=== PATIENT | male | born 1985 | race Caucasian/White ===

== ENCOUNTER 2020-08-12 12:25 | Outpatient (REF) | payer MEDICAID, SELFPAY | END 2020-08-12 12:26 | disposition home or self-care (01) | LOC: HO.LAB 12:25 | PROVIDERS: PCP Family Medicine; Visit Provider Internal Medicine | DX: Z20.822 Contact with and (suspected) exposure to COVID-19 (principal) | CPT/HCPCS: 36415; C9803; U0003 ==

== ENCOUNTER 2022-06-25 06:29 | Day surgery (SDC) | payer OTHER, SELFPAY ==
[2022-06-17 12:40] VITALS: BMI 33.2
--- NOTE | 2022-06-24 09:38 | HO.ANESPROP2 ---
Documented by User: Dulce Silveira NP 06/24/22 09:38 HPI - Anesthesia Eval Consult details Narrative: 37yo M for Right Excision Axillary Cyst [facility] Active Problems Active Problems: All Active Problems (Updated 06/17/22 @ 12:36 by Mallory Ladd RN) Sebaceous cyst of right axilla (Acute) Anxiety (Acute) Past Medical History Medical History (Updated 06/17/22 @ 12:36 by Mallory Ladd RN) Anxiety GERD (gastroesophageal reflux disease) History of panic attacks Mood swings Surgical History Surgical History H/O toe surgery Social History Social History Household Members: Family Housing: House Alcohol intake: current Alcohol intake frequency: a few times a month Patient Tobacco Use Status: Current everyday Tobacco user Tobacco use type: Cigarette Cigarette Packs Per Day: 6 Cigarettes Per Day: 4 Use of substances other than those prescribed or required for medical reasons: No Are you DNR?: No Advance Directives: No Advance Directives Information Provided: Yes Meds Allergies Allergy/AdvReac Type Severity Reaction Status Date / Time Penicillins AdvReac Severe Gastrointestinal Verified 06/17/22 12:35 Upset amoxicillin AdvReac Intermediate Gastrointestinal Verified 06/17/22 12:35 Upset Home Medications Medication Instructions Recorded Confirmed Last Taken Type bupropion HCl 300 mg 24 hr tablet, 300 mg PO DAILY 05/26/22 06/25/22 06/25/22 History extended release clonidine HCl 0.1 mg tablet 0.1 mg PO BEDTIME PRN Anxiety 05/26/22 06/17/22 Unknown History Exam Exam Date and Time: June 24, 2022 0938 Height,Weight and Vital Signs: Height 6 ft 3 in Weight 120.656 kg Assessment and Plan Assessment Anesthesia Assessment: Chart Reviewed Documented by User: Janis Ocasio MD 06/25/22 07:34 [facility] Past Medical History Medical History (Updated 06/17/22 @ 12:36 by Mallory Ladd RN) Anxiety GERD (gastroesophageal reflux disease) History of panic attacks Mood swings Functional capacity: independent ambulation Family History Family history of problems with anesthesia: No Surgical History Surgical History H/O toe surgery History of Problems with Anesthesia: No Social History Social History Household Members: Family Housing: House Alcohol intake: current Alcohol intake frequency: a few times a month Patient Tobacco Use Status: Current everyday Tobacco user Tobacco use type: Cigarette Cigarette Packs Per Day: 6 Cigarettes Per Day: 4 Use of substances other than those prescribed or required for medical reasons: No Are you DNR?: No Advance Directives: No Advance Directives Information Provided: Yes Meds Allergies Allergy/AdvReac Type Severity Reaction Status Date / Time Penicillins AdvReac Severe Gastrointestinal Verified 06/17/22 12:35 Upset amoxicillin AdvReac Intermediate Gastrointestinal Verified 06/17/22 12:35 Upset Home Medications Medication Instructions Recorded Confirmed Last Taken Type bupropion HCl 300 mg 24 hr tablet, 300 mg PO DAILY 05/26/22 06/25/22 06/25/22 History extended release clonidine HCl 0.1 mg tablet 0.1 mg PO BEDTIME PRN Anxiety 05/26/22 06/17/22 Unknown History Exam Airway Mallampati Class: II TM Dist: >3cm Neck ROM: Full Heart: rr Lungs: cta Assessment and Plan Final Anesthetic Review Family History of Problems with Anesthesia: No History of Problems with Anesthesia: No NPO: Yes ASA Class: II Final Preanesthetic Review: No Changes in Pt Med Stat Patient Risk: Low Anesthetic Plan Anesthetic Plan: MAC: Disposition: Standard PACU
[2022-06-25 07:02] VITALS: BMI 27.2
[2022-06-25 07:09] VITALS: BP 120/84; PULSE 87; RESP 16; TEMP 36.3; O2SAT 98
--- NOTE | 2022-06-25 07:15 | MHC.SHP ---
Pre-Procedural Eval Section A Date of Service: 06/25/22 The patient is an INPATIENT: No The History & Physical has been completed within 30 days and I have reviewed it.: Yes Section B Chief Complaint: Sebaceous cyst Allergies: Allergies Allergy/AdvReac Type Severity Reaction Status Date / Time Penicillins AdvReac Severe Gastrointestinal Verified 06/17/22 12:35 Upset amoxicillin AdvReac Intermediate Gastrointestinal Verified 06/17/22 12:35 Upset Plan I have reviewed the history and physical and performed a pertinent physical examination on my patient. No changes have occurred unless specified.
--- NOTE | 2022-06-25 07:16 | W.PM.OPN ---
Operative Note Operative Note Date of Service: 06/25/22 Narrative: Preop diagnosis: [RIGHT AXILLARY SEBACEOUS CYST, intractable anxiety] Postop diagnosis: [Same] Procedure: [Excision of a 3.5 x 3.6cm sebaceous cyst with intermediate closure of a 4 cm incision] Surgeon: Marcus Sarah MD Assist: [] Anesthesia: [Mac, local was lidocaine, 1% plain with a P of a cane, 0.5 with epi] Estimated blood loss: [3cc] Specimen: [Right axillary sebaceous cyst] Intraoperative findings: [3.5 x 3.6 cm sebaceous cyst with no purulence] Indications: [The patient is a 37-year-old gentleman with debilitating anxiety who presented to the office with a symptomatic sebaceous cyst that was not infected, but in the interview process, he was unable to sit still in would not tolerate an exam without moving. Given this, excision under MAC versus continued observation was discussed. Given the large size of 4.5 cm and the risk of infection, I recommended excision and reviewed the inherent risks of bleeding, infection, scar formation in the less likely issues of recurrence and lymphatic leak. Patient seemed understand his options and wanted to proceed.] Procedure: [The patient was identified by myself in the preoperative holding area and the operative site confirmed the RIGHT AXILLA and marked by myself. The patient was brought into the operating suite placed supine on the table. His right axillary hair was clipped in preop holding. The patient was placed supine with his right arm abducted and mac was administered with excellent effect. Next, his right axilla and chest and proximal arm were prepped with ChloraPrep. A planned incision encompassing the central pore was fashioned elliptically and after infiltrating local with excellent effect, an elliptical incision measuring 4 cm was carried into the subcutaneous tissues taking care to avoid violating the cyst capsule. Careful could circumferential dissection was performed and the cyst extirpated and sent for permanent section. The pocket was irrigated copiously and inspected for hemostasis. Hemostasis was obtained with cautery. Next, an intermediate closure using interrupted 3-0 Polysorb to close the subcutaneous tissues and axillary subcutaneous tissue defect due to the size of the cyst was performed with good tissue approximation in the skin closed with interrupted 3-0 polypropylene sutures. The area was then washed and dried, bacitracin and dressing applied. Patient tolerated the procedure well was sent to the recovery in stable condition. All sponge instrument counts were correct At the patient's request I spoke with his brother Mike and reviewed instructions. His questions seemed to be satisfactorily answered]
[2022-06-25] MEDS: Lactated Ringers 1,000 ML 100 ML IVCONT (07:28)
[2022-06-25 09:08] VITALS: BP 113/72; PULSE 85; RESP 18; TEMP 36.3; O2SAT 97
[2022-06-25 09:23] VITALS: BP 115/76; PULSE 78; RESP 18; O2SAT 99
[2022-06-25 09:26] VITALS: BP 117/78; PULSE 68; RESP 18; TEMP 36.4; O2SAT 98
== END 2022-06-25 10:17 | disposition home or self-care (01) ==
PROVIDERS: PCP Family Medicine; Visit Provider Surgery
PROC: (CPT 11403; principal; 2022-06-25 08:20)
DX: L72.3 Sebaceous cyst (principal); F41.9 Anxiety disorder, unspecified; Z79.899 Other long term (current) drug therapy; Z88.0 Allergy status to penicillin
CPT/HCPCS: 11403; 12032; 88304; J0690; J2250; J3010

== ENCOUNTER 2022-10-05 09:44 | Outpatient (REF) | payer OTHER, SELFPAY ==
[2022-10-05 11:40] LABS: Alanine Aminotransferase 26 U/L (0-40); Anion Gap 10 (12-20); Aspartate Amino Transferase 20 U/L (5-37); Blood Urea Nitrogen 14 mg/dL (9-16); Carbon Dioxide 29 mmol/L (22-29); Chloride 108 mmol/L (96-108); Cholesterol 162 mg/dL; Estimated Glomerular Filt Rate > 60; Glucose Fasting 83 mg/dL (60-99); HDL Cholesterol 46 mg/dL; LDL Cholesterol Calculated 88 mg/dl; Potassium 4.2 mmol/L (3.3-5.1); Sodium 143 mmol/L (135-145); Triglycerides 140 mg/dL
== END 2022-10-05 09:45 | disposition home or self-care (01) ==
LOC: HO.LAB 09:44
PROVIDERS: PCP Family Medicine; Visit Provider Family Medicine
DX: I10 Essential (primary) hypertension (principal); Z82.49 Family history of ischemic heart disease and other diseases of the circulatory system; Z83.3 Family history of diabetes mellitus
CPT/HCPCS: 36415; 80051; 80061; 82565; 82947; 84450; 84460; 84520

== ENCOUNTER 2023-09-13 09:50 | Outpatient (REF) | payer OTHER, SELFPAY ==
[2023-09-13 09:58] LABS: MANUAL DIFF FLAG NO
[2023-09-13 10:18] LABS: Basophils Absolute Auto 0.1 X10*3/uL (0.0-0.2); Basophils Percent Auto 0.8 % (0-2); Eosinophils Absolute Auto 0.1 X10*3/uL (0.0-0.4); Eosinophils Percent Auto 1.4 % (0-4); Hematocrit 47.2 % (42.0-52.0); Hemoglobin 16.1 g/dl (14.0-18.0); Imm Gran Abs Auto 0.02 X10*3/uL (0.00-0.03); Imm Gran Pct Auto 0.3 % (0.0-0.4); Lymphocytes Absolute Auto 1.6 X10*3/uL (1.2-4.9); Lymphocytes Percent Auto 27.6 % (20-40); Mean Corpuscular HGB Conc 34.1 g/dl (31.0-36.0); Mean Corpuscular Hemoglobin 32.6 pg (27.0-33.0); Mean Corpuscular Volume 95.5 fL (80.0-98.0); Mean Platelet Volume 10.8 fL (9.4-12.4); Monocytes Absolute Auto 0.6 X10*3/uL (0.1-1.2); Monocytes Percent Auto 9.8 % (2-11); Neutrophils Absolute Auto 3.5 x10*3/uL (2.0-8.3); Neutrophils Percent Auto 60.1 % (45-73); Platelet Count 233 X10*3/uL (160-400); Red Blood Count 4.94 X10*6/uL (4.60-5.80); Red Cell Distribution Width 11.9 % (11.0-16.0); White Blood Count 5.9 X10*3/uL (4.8-10.8)
[2023-09-13 11:05] LABS: Thyroid Stimulating Hormone 1.87 uIU/mL (0.32-4.0)
== END 2023-09-13 09:51 | disposition home or self-care (01) ==
LOC: HO.LAB 09:50
PROVIDERS: Visit Provider Family Medicine
DX: R00.0 Tachycardia, unspecified (principal)
CPT/HCPCS: 36415; 84443; 85025